=== PATIENT | male | born 1995 | race Caucasian/White ===

== ENCOUNTER 2019-03-28 15:39 | Emergency (ER) | payer BC ==
--- NOTE | 2019-03-28 15:48 | UC ---
Lower Extremity/Ankle HPI - HPI Summary HPI Summary: 23 yo male presents with RIGHT knee pain. He tells me that 1 week ago he was skiing and went off a jump and hit the front of his right knee on a tree. Had immediate pain and could not bear weight for 20-30minutes. Then was able to ski down the hill. Saw his PCP 2 days later and was told it was likely a contusion. No XRs. Since that time has had improvement of the swelling and pain, but knee still feels painful with weight bearing and feels "clicky" and unstable at times. He has been taking ibuprofen with good relief. Elevating and resting improves pain and swelling. Denies numbness or tingling. - History of Current Complaint Stated Complaint: LEG INJURY Time Seen by Provider: 03/28/19 15:47 Hx Obtained From: Patient Onset/Duration: Sudden Onset Severity Initially: Severe Severity Currently: Mild Pain Intensity: 3 Pain Scale Used: 0-10 Numeric - Allergies/Home Medications Allergies/Adverse Reactions: Allergies Allergy/AdvReac Type Severity Reaction Status Date / Time SEASONAL Allergy Congestion Uncoded 03/28/19 15:50 Home Medications: Home Medications Ibuprofen TAB* [Motrin TAB* 600 MG] 600 mg PO DAILY 03/28/19 [History Confirmed 03/28/19] PMH/Surg Hx/FS Hx/Imm Hx - Additional Past Medical History Additional PMH: None Other History Of: Negative For: HIV, Hepatitis B, Hepatitis C - Surgical History Surgical History: Yes Surgery Procedure, Year, and Place: EAR TUBES, TESTICULAR SURGERY, T&A, BROKEN NOSE - Family History Known Family History: Positive: None - Social History Occupation: Student Lives: Dormitory/Roommates Alcohol Use: None Substance Use Type: None Smoking Status (MU): Never Smoked Tobacco - Immunization History Vaccination Up to Date: Yes Review of Systems All Other Systems Reviewed And Are Negative: No Constitutional: Positive: Negative Skin: Positive: Negative Respiratory: Positive: Negative Cardiovascular: Positive: Negative Neurovascular: Positive: Negative Musculoskeletal: Positive: Other: - Right knee pain Neurological: Positive: Negative Psychological: Positive: Negative Physical Exam - Summary Physical Exam Summary: GENERAL: NAD. WDWN. No pain distress. SKIN: No rashes, sores, lesions, or open wounds. CHEST: No accessory muscle use. Breathing comfortably and in no distress. CV: Pulses intact popliteal, PT, and DP. Cap refill <2seconds MSK: RIGHT KNEE: Mild edema. Mild TTP about medial aspect. FROM. Strength 5/5. No patella apprehension. Negative Neel, A/P drawer, Swapna, and varus/ valgus stress. Moderate edema to calf - soft nttp negative homans NEURO: Alert. Sensations intact and symmetric B/L LEs PSYCH: Age appropriate behavior. Triage Information Reviewed: Yes Vital Signs: Vital Signs: Temp Pulse Resp BP Pulse Ox 98.3 F 65 16 124/83 100 03/28/19 15:46 03/28/19 15:46 03/28/19 15:46 03/28/19 15:46 03/28/19 15:46 Vital Signs Reviewed: Yes Diagnostics - Radiology Knee XR Radiology Interpretation Completed By: Radiologist Summary of Radiographic Findings: IMPRESSION: No radiographically apparent acute fracture or dislocation involving the right knee or lower leg. If the patient's symptoms persist, follow-up imaging is recommended. Tibfib XR Radiology Interpretation Completed By: Radiologist Summary of Radiographic Findings: IMPRESSION: No radiographically apparent acute fracture or dislocation involving the right knee or lower leg. If the patient's symptoms persist, follow-up imaging is recommended. Lower Extremity Course/Dx - Course Course Of Treatment: XRs as above. Suspect contusion vs internal derangement of the knee. Will refer him to Orthopedics for further eval - Differential Dx/Diagnosis Provider Diagnosis: Knee pain Discharge ED - Sign-Out/Discharge Documenting (check all that apply): Patient Departure All imaging exams completed and their final reports reviewed: Yes - Discharge Plan Condition: Stable Disposition: HOME Prescriptions: Naproxen [Naproxen 500 mg tab] 500 mg PO BID PRN #30 tablet PRN Reason: Pain - Mild Patient Education Materials: Swollen Knee Joint (ED), Knee Pain (ED) Forms: *Work Release Referrals: Chuy Sanchez MD [Primary Care Provider] - Mark Cat MD [Medical Doctor] - As Soon As Possible Additional Instructions: If you develop a fever, shortness of breath, chest pain, new or worsening symptoms - please call your PCP or go to the ED immediately. 1) Continue rest, ice, and elevate your knee 2) I recommend that you call Orthopedics at the number below to schedule an appointment for further evaluation as I suspect you may have a meniscus issue. - Billing Disposition and Condition Condition: STABLE Disposition: Home
[2019-03-28 15:50] VITALS: BP 124/83
== END 2019-03-28 17:30 | disposition home or self-care (01) ==
LOC: UCEAST 15:39
DX: M25.561 Pain in right knee (principal); Z91.09 Other allergy status, other than to drugs and biological substances
CPT/HCPCS: 99212; G0463